=== PATIENT | female | born 1995 | race Caucasian/White ===

== ENCOUNTER 2017-01-31 23:18 | Emergency (ER) | payer SELFPAY ==
[~2017-01-31] VITALS: Ht 160 cm; Wt 69.0 kg
[2017-02-01] MEDS ORDERED: NALOXONE HCL 1 MG/ML 2ML VIAL IM ONE (02:00)
[2017-02-01 04:14] VITALS: BP 105/62
== END 2017-02-01 05:36 | disposition home or self-care (01) ==
LOC: ER 23:18
DX: T40.601A Poisoning by unspecified narcotics, accidental (unintentional), initial encounter (principal); F12.10 Cannabis abuse, uncomplicated; Y92.89 Other specified places as the place of occurrence of the external cause
CPT/HCPCS: 96372; 99283; J2310; Z7610